=== PATIENT | female | born 1980 | race Caucasian/White ===

== ENCOUNTER 2019-06-30 07:33 | Emergency (ER) | payer OTHER ==
[~2019-06-30] VITALS: Ht 167.6 cm; Wt 56.7 kg
--- NOTE | 2019-06-30 08:15 | RAD ---
EXAM: PA and Lateral Views of the Chest DATE: 06/30/2019 7:57 AM INDICATION: Syncope COMPARISON: No Prior FINDINGS: The heart is not enlarged. Mediastinal and hilar contours are normal. No focal parenchymal airspace opacity. No pleural effusion or pneumothorax. IMPRESSION: 1. No radiographic evidence for acute cardiopulmonary process. Electronically signed by: Vamsi Bello MD (06/30/2019 8:12 AM) [id number]
--- NOTE | 2019-06-30 08:21 | EKG ---
[address] [address] Test Date: 2019-06-30 Test Time: 08:19:11 Pat Name: ANDREAS VERDUGO Department: Room: Gender: F [employer]: : 1980 Requested By: ANNY WHYTE Order Number: [id number] Reading MD: Measurements Intervals [place] Rate: 97 P: -8 RI: 152 QRS: -56 QRSD: 94 T: 30 QT: 382 QTc: 490 Interpretive Statements SINUS RHYTHM LOW LIMB LEAD VOLTAGE LEFT ANTERIOR FASCICULAR BLOCK QRS(T) CONTOUR ABNORMALITY CONSIDER ANTEROLATERAL MYOCARDIAL DAMAGE PROLONGED QT ABNORMAL ECG RI6.01 No previous ECG available for comparison
--- NOTE | 2019-06-30 08:21 | RAD ---
EXAM: CT Head without IV contrast CLINICAL HISTORY: Syncope COMPARISON: None. TECHNIQUE: Routine CT of the head without contrast. Soft tissues and bone windows were reviewed. PQRS compliance statement - One or more of the following individualized dose reduction techniques were utilized for this study: 1. Automated exposure control 2. Adjustment of the mA and/or kV according to patient size 3. Use of iterative reconstruction technique FINDINGS: There is no evidence of hemorrhage, mass or extra-axial fluid collection. Decker-white differentiation is maintained with no evidence of edema. There is no mass effect or shift of the intracranial structures. The ventricles, basilar cisterns and cortical sulci are normal in size and configuration for the patients stated age. The cerebellum and brainstem are unremarkable. The calvarium demonstrates no evidence of fracture or focal lesion. There is normal aeration of the visualized paranasal sinuses and mastoid air cells. The visualized portions of the orbits are normal. IMPRESSION: No evidence for acute intracranial process. Electronically signed by: Vamsi Bello MD (06/30/2019 8:18 AM) [id number]
--- NOTE | 2019-06-30 08:44 | PHYS DOC ---
Past History Past Medical History: No Pertinent History Past Surgical History: No Surgical History Alcohol Use: None Drug Use: None Adult General Chief Complaint Chief Complaint: MULTIPLE COMPLAINTS HPI HPI 38-year-old female presents with syncopal episode. The patient felt like there might be something in her eye, so she rapidly got out of bed and had to the bathroom. She began to feel "weird" and the next thing she remembers is her family talking to her while she was lying on the floor. Her heard her hit the floor and came into the room. She was unconscious. He believes she woke up in 10 or 15 seconds. When she woke up, she appeared to be aware of her surroundings. She was feeling nauseated and continued to feel nauseous until she got to the hospital. She had loss of bladder. Her did not see any kind of rhythmic movements or body stiffness. The patient has had a syncopal episode in the past. It was also when she was rapidly getting out of bed. This was about 10 years ago. Patient has been eating and drinking normally. Not taking any drugs. She is not using any herbals, supplements, or energy drinks. She was feeling normal yesterday. She denies fever or chills. She denies any injuries. No history of seizures. Review of Systems Review of Systems Constitutional: Denies fever or chills [] Eyes: Denies change in visual acuity, redness, or eye pain [] HENT: Denies nasal congestion or sore throat [] Respiratory: Denies cough or shortness of breath [] Cardiovascular: No additional information not addressed in HPI [] GI: Nausea. Denies abdominal pain, vomiting, bloody stools or diarrhea [] : Denies dysuria or hematuria [] Musculoskeletal: Denies back pain or joint pain [] Integument: Denies rash or skin lesions [] Neurologic: Intubated. Denies headache, focal weakness or sensory changes [] Endocrine: Denies polyuria or polydipsia [] All other systems were reviewed and found to be within normal limits, except as documented in this note. Physical Exam Physical Exam Constitutional: Well developed, well nourished, no acute distress, non-toxic appearance. [] HENT: Normocephalic, atraumatic, bilateral external ears normal, oropharynx moist, no oral exudates, nose normal. [] Eyes: PERRLA, EOMI, conjunctiva normal, no discharge. [] Neck: Normal range of motion, no tenderness, supple, no stridor. [] Cardiovascular:Heart rate regular rhythm, no murmur [] Lungs & Thorax: Bilateral breath sounds clear to auscultation [] Abdomen: Bowel sounds normal, soft, no tenderness, no masses, no pulsatile masses. [] Skin: Warm, dry, no erythema, no rash. [] Back: No tenderness, no CVA tenderness. [] Extremities: No tenderness, no cyanosis, no clubbing, ROM intact, no edema. [] Neurologic: Alert and oriented X 3, normal motor function, normal sensory function, no focal deficits noted. [] Psychologic: Affect normal, judgement normal, mood normal. [] Current Patient Data Vital Signs Vital Signs Date Time Temp Pulse Resp B/P (MAP) Pulse Ox O2 Delivery O2 Flow Rate FiO2 06/30/19 07:52 97.8 102 18 100 Room Air EKG EKG Sinus rhythm, rate 97, left axis, possible fascicular block, no ST elevations or depressions.[] Radiology/Procedures Radiology/Procedures [] Impressions: EXAM: PA and Lateral Views of the Chest DATE: 06/30/2019 7:57 AM INDICATION: Syncope COMPARISON: No Prior FINDINGS: The heart is not enlarged. Mediastinal and hilar contours are normal. No focal parenchymal airspace opacity. No pleural effusion or pneumothorax. IMPRESSION: 1. No radiographic evidence for acute cardiopulmonary process. Electronically signed by: Vamsi Bello MD (06/30/2019 8:12 AM) [id number] DICTATED AND SIGNED BY: VAMSI BELLO MD DATE: 06/30/19 0812 CC: ANNY WHYTE DO; PCP,UNKNOWN ~ EXAM: CT Head without IV contrast CLINICAL HISTORY: Syncope COMPARISON: None. TECHNIQUE: Routine CT of the head without contrast. Soft tissues and bone windows were reviewed. PQRS compliance statement - One or more of the following individualized dose reduction techniques were utilized for this study: 1. Automated exposure control 2. Adjustment of the mA and/or kV according to patient size 3. Use of iterative reconstruction technique FINDINGS: There is no evidence of hemorrhage, mass or extra-axial fluid collection. Decker-white differentiation is maintained with no evidence of edema. There is no mass effect or shift of the intracranial structures. The ventricles, basilar cisterns and cortical sulci are normal in size and configuration for the patients stated age. The cerebellum and brainstem are unremarkable. The calvarium demonstrates no evidence of fracture or focal lesion. There is normal aeration of the visualized paranasal sinuses and mastoid air cells. The visualized portions of the orbits are normal. IMPRESSION: No evidence for acute intracranial process. Electronically signed by: Vamsi Bello MD (06/30/2019 8:18 AM) [id number] Course & Med Decision Making Course & Med Decision Making Pertinent Labs and Imaging studies reviewed. (See chart for details) The patient's EKG does not show any ST elevations or arrhythmias. Her chest x- ray is unremarkable. Her labs are unremarkable. Her troponin is negative. Her head CT is negative for acute findings. The patient was given 4 mg of Zofran and 1 L normal saline. She is feeling better at this time. The patient's episodes sounds like vasovagal syncope. I suspect that she was mildly dehydrated and the transition from lying down to moving across her bedroom about her blood pressure to drop and she passed out. This has not happened in many years. I have advised that if she has an additional episode she should have further workup done. She is stable for discharge at this time. [] Dragon Disclaimer Dragon Disclaimer This electronic medical record was generated, in whole or in part, using a voice recognition dictation system. Departure Departure: Impression: Primary Impression: Vasovagal syncope Disposition: 01 HOME, SELF-CARE Condition: STABLE Referrals: PCP,UNKNOWN (PCP) Patient Instructions: Syncope, [id number] ANNY WHYTE DO Jun 30, 2019 08:44
[2019-06-30] MEDS ORDERED: IV NORMAL SALINE 1,000ML 1,000 ML IV ONE (08:45)
[2019-06-30] MEDS ORDERED: ONDANSETRON PF 4 MG/2 ML VIAL. IV ONE (08:45)
[2019-06-30 08:51] LABS: BASO % 1 % (0-3); EOS % 0 % (0-3); HEMOGLOBIN 15.3 g/dL (12.0-15.5); LYMPH # 1.1 x10^3/uL (1.0-4.8); LYMPH % 12 % (24-48); MEAN CORPUSCULAR HEMOGLOBIN 31 pg (25-35); MEAN CORPUSCULAR HGB CONC 34 g/dL (31-37); MEAN CORPUSCULAR VOLUME 91 fL (79-100); MONO # 0.2 x10^3/uL (0.0-1.1); MONO % 3 % (0-9); NEUT # 7.4 x10^3uL (1.8-7.7); NEUT % 84 % (31-73); PLATELET COUNT 245 x10^3/uL (140-400); RED BLOOD COUNT 4.95 x10^6/uL (3.50-5.40); RED CELL DISTRIBUTION WIDTH 12.7 % (11.5-14.5); WHITE BLOOD COUNT 8.8 x10^3/uL (4.0-11.0)
[2019-06-30 09:02] LABS: ALBUMIN/GLOBULIN RATIO 1.1 (1.0-1.7); CREATININE 0.7 mg/dL (0.6-1.0); GFR 93.2; POTASSIUM 3.7 mmol/L (3.5-5.1); TOTAL BILIRUBIN 0.6 mg/dL (0.2-1.0); TOTAL PROTEIN 7.6 g/dL (6.4-8.2)
[2019-06-30 10:01] LABS: BACTERIA,URINE 0 /HPF (0-FEW); BILIRUBIN,URINE NEG (NEG); CLARITY,URINE CLEAR; COLOR,URINE YELLOW; GLUCOSE,URINE NEG (NEG); NITRITE,URINE NEG (NEG); RBC,URINE 0 /HPF (0-2); SQUAMOUS EPITHELIAL CELL,UR OCC /LPF; UROBILINOGEN,URINE 0.2 mg/dL (0.2 mg/dL); WBC,URINE 0 /HPF (0-4)
[2019-06-30 10:31] VITALS: BP 104/69
== END 2019-06-30 10:36 | disposition home or self-care (01) ==
LOC: ER 07:33
DX: R55 Syncope and collapse (principal)
CPT/HCPCS: 36415; 70450; 71046; 80053; 81001; 84484; 85025; 93005; 96361; 96374; 99285; J2405; J7030